=== PATIENT | female | born 1995 | race Caucasian/White ===

== ENCOUNTER 2024-08-22 19:10 | Inpatient (IN) | payer BC ==
[~2024-08-22] VITALS: Ht 154.9 cm; Wt 139.2 kg
[2024-08-22 21:37] LABS: BASOPHILS % (AUTO) 0.1 % (0.0-2.0); EOSINOPHILS % (AUTO) 0.3 % (1.0-6.0); HEMATOCRIT 29.2 % (36-46); HEMOGLOBIN 9.1 g/dL (12.0-16.0); LYMPHOCYTES # (AUTO) 1.9 K/uL (1.0-4.8); LYMPHOCYTES % (AUTO) 7.2 % (22.0-44.0); MEAN CORPUSCULAR HEMOGLOBIN 23.8 pg (26.0-34.0); MEAN CORPUSCULAR HGB CONC 31.3 G/dL (31.0-37.0); MEAN CORPUSCULAR VOLUME 76 fL (80-100); MONOCYTES # (AUTO) 2.1 K/uL (0.1-1.0); MONOCYTES % (AUTO) 8.3 % (2.0-9.0); NEUTROPHILS # (AUTO) 21.8 K/uL (1.8-7.7); NEUTROPHILS % (AUTO) 84.1 % (40.0-70.0); PLATELET COUNT (AUTO) 333 K/uL (150-450); RED BLOOD CELL COUNT(AUTO) 3.84 MIL/uL (4.00-5.20); RED CELL DISTRIBUTION WIDTH 15.2 % (11.5-14.5); WHITE BLOOD COUNT (AUTO) 25.9 K/uL (4.5-11.0)
[2024-08-22 21:38] LABS: RBC MORPHOLOGY COMMENT ABNORMAL RBC MORPH
[2024-08-22 21:46] LABS: CALCIUM, TOTAL 8.7 mg/dL (8.8-10.5); CREATININE 1.14 mg/dL (0.60-1.30)
[2024-08-22 21:52] LABS: POTASSIUM 2.9 mmol/L (3.5-5.1)
[2024-08-22 21:54] LABS: TROPONIN I-HIGH SENSITIVITY 4 ng/L (<51)
[2024-08-22] MEDS ORDERED: 0.9% SODIUM CHLORIDE 10 ML SYRINGE IVP PRN (22:30)
[2024-08-22] MEDS: SODIUM CHLORIDE 0.9% 1,000 ML IV ONE (23:04)
[2024-08-22] MEDS: CefTRIAXone 1 GM/DEXTROSE 50 ML IV ONE (23:05)
[2024-08-22] MEDS: POTASSIUM CHLORIDE 20 MEQ ER TABLET PO ONE (23:05)
[2024-08-22] MEDS ORDERED: MAGNESIUM SULFATE 4 GM/WATER 100 ML IV PRN (23:15)
[2024-08-22] MEDS ORDERED: BISACODYL 10 MG RECTAL RECTAL SUPPOSITORY PR PRN (23:15)
[2024-08-22] MEDS ORDERED: MORPHINE SULFATE 2 MG/ML SYRINGE IVP PRN (23:15)
[2024-08-22] MEDS ORDERED: POTASSIUM CHL 10 MEQ/WATER 50 ML IV PRN (23:15)
[2024-08-22] MEDS ORDERED: ACETAMINOPHEN 325 MG TABLET PO PRN (23:15)
[2024-08-22] MEDS ORDERED: ONDANSETRON HCL 4 MG/2 ML VIAL IVP PRN (23:15)
[2024-08-22] MEDS ORDERED: ZOLPIDEM TARTRATE 5 MG TABLET PO PRN (23:15)
[2024-08-22] MEDS ORDERED: MAGNESIUM SULFATE 2 GM/WATER 50 ML IV PRN (23:15)
[2024-08-22] MEDS ORDERED: MAGNESIUM OXIDE 400 MG TABLET PO PRN (23:15)
[2024-08-22 23:21] LABS: LACTIC ACID 0.9 mmol/L (0.4-2.0)
[2024-08-22] MEDS ORDERED: CefTRIAXone 1 GM/DEXTROSE 50 ML IV SCH (23:30)
[2024-08-22 23:37] LABS: ALBUMIN 1.9 g/dL (3.4-5.0)
[2024-08-22] MEDS: AZITHROMYCIN 500 MG/NS 250 ML IV ONE (23:45)
[2024-08-23] VITALS (9 sets, daily range): BP systolic 121–141; BP diastolic 64–92; PULSE 85–108; RESP 16–20; TEMP 98.4–99.2; O2SAT 92–99
[2024-08-23 01:20] LABS: APPEARANCE,URINE CLEAR (CLEAR); BILIRUBIN,URINE NEGATIVE (NEGATIVE); COLOR,URINE LIGHT YELLOW (YELLOW); GLUCOSE, URINE (UA) NEGATIVE (NEGATIVE); KETONES,URINE NEGATIVE (NEGATIVE); LEUKOCYTE ESTERASE ,URINE NEGATIVE (NEGATIVE); NITRATE,URINE NEGATIVE (NEGATIVE); OCCULT BLOOD,URINE NEGATIVE (NEGATIVE); PROTEIN,URINE NEGATIVE (NEGATIVE); UROBILINOGEN,URINE <=1.0 mg/dL (<=1.0)
[2024-08-23] MEDS: HEPARIN SODIUM,PORCINE 5,000 UNITS/ML VIAL SQ SCH (01:30)
[2024-08-23] MEDS: HYDROCODONE/ACETAMINOPHEN 5-325 MG TABLET PO PRN (01:54)
[2024-08-23] MEDS: PANTOPRAZOLE SODIUM 40 MG/VIAL IVP SCH (08:35)
[2024-08-23] MEDS: DOCUSATE SODIUM 100 MG CAPSULE PO SCH (08:38)
[2024-08-23] MEDS: ALBUTEROL SULFATE 2.5 MG/0.5 ML NEB SOLUTION NEB PRN (09:36)
[2024-08-23] MEDS: IPRATROPIUM BROMIDE 0.5 MG/2.5 ML NEB SOLUTION NEB PRN (09:36)
[2024-08-23 09:46] LABS: ANION GAP 9 mmol/L (8-16); CALCIUM, TOTAL 8.4 mg/dL (8.8-10.5); CARBON DIOXIDE 25 mmol/L (22-29); CHLORIDE 100 mmol/L (98-107); CREATININE 0.97 mg/dL (0.60-1.30); GLOMERULAR FILTR. RATE CALC > 60 mL/min (>60); GLUCOSE,RANDOM 106 mg/dL (70-110); POTASSIUM 3.4 mmol/L (3.5-5.1); SODIUM SERUM 134 mmol/L (136-145); UREA NITROGEN, BLOOD 13 mg/dL (7-18)
[2024-08-23] MEDS: POTASSIUM CHLORIDE 20 MEQ ER TABLET PO PRN (10:38)
[2024-08-23 11:26] LABS: BASOPHILS % (AUTO) 0.1 % (0.0-2.0); EOSINOPHILS % (AUTO) 0.4 % (1.0-6.0); HEMATOCRIT 28.7 % (36-46); HEMOGLOBIN 8.7 g/dL (12.0-16.0); LYMPHOCYTES # (AUTO) 2.8 K/uL (1.0-4.8); LYMPHOCYTES % (AUTO) 9.4 % (22.0-44.0); MEAN CORPUSCULAR HEMOGLOBIN 23.1 pg (26.0-34.0); MEAN CORPUSCULAR HGB CONC 30.3 G/dL (31.0-37.0); MEAN CORPUSCULAR VOLUME 76 fL (80-100); MONOCYTES # (AUTO) 1.9 K/uL (0.1-1.0); MONOCYTES % (AUTO) 6.5 % (2.0-9.0); NEUTROPHILS # (AUTO) 24.8 K/uL (1.8-7.7); NEUTROPHILS % (AUTO) 83.6 % (40.0-70.0); PLATELET COUNT (AUTO) 334 K/uL (150-450); RED BLOOD CELL COUNT(AUTO) 3.75 MIL/uL (4.00-5.20); RED CELL DISTRIBUTION WIDTH 15.2 % (11.5-14.5); WHITE BLOOD COUNT (AUTO) 29.7 K/uL (4.5-11.0)
[2024-08-23] MEDS: *CLINICAL-CEFEPIME DOSING CLINICAL ONE (18:03)
[2024-08-23] MEDS ORDERED: SODIUM CHLORIDE 0.9% 500 ML IV ONE (19:25)
[2024-08-23] MEDS: VANCOMYCIN HCL 1 GM/D5% WATER 200 ML IV ONE (19:28)
[2024-08-23] MEDS ORDERED: NORE1TAB27 PO (20:41)
[2024-08-23] MEDS: ETHINYL ESTRADIOL PO SCH (21:25)
[2024-08-23] MEDS: NORETHINDRONE PO SCH (21:25)
[2024-08-23] MEDS: CEFEPIME HCL 2 GM in DEXTROSE 5%-WATER 50 ML IV SCH (22:03)
[2024-08-23] MEDS: AZITHROMYCIN 500 MG/NS 250 ML IV SCH (22:46)
[2024-08-24] VITALS (7 sets, daily range): BP systolic 116–144; BP diastolic 73–94; PULSE 92–114; RESP 18–28; TEMP 98–99.3; O2SAT 85–98
[2024-08-24] MEDS: VANCOMYCIN HCL 1 GM/D5% WATER 200 ML IV ONE (00:05)
[2024-08-24 07:56] LABS: ANION GAP 8 mmol/L (8-16); CALCIUM, TOTAL 8.3 mg/dL (8.8-10.5); CARBON DIOXIDE 25 mmol/L (22-29); CHLORIDE 98 mmol/L (98-107); GLOMERULAR FILTR. RATE CALC > 60 mL/min (>60); GLUCOSE,RANDOM 102 mg/dL (70-110); POTASSIUM 4.1 mmol/L (3.5-5.1); SODIUM SERUM 131 mmol/L (136-145); UREA NITROGEN, BLOOD 11 mg/dL (7-18)
[2024-08-24] MEDS: VANCOMYCIN HCL 1.25 GM in DEXTROSE 5%-WATER 250 ML IV SCH (08:45)
[2024-08-24] MEDS: OxyCODONE HCL/ACETAMINOPHEN 10-325 MG TABLET PO PRN (14:32)
[2024-08-25] VITALS: BP 120/95; PULSE 90; RESP 20; TEMP 98.5; O2SAT 95
[2024-08-25 08:17] LABS: ANION GAP 7 mmol/L (8-16); CALCIUM, TOTAL 8.1 mg/dL (8.8-10.5); CARBON DIOXIDE 28 mmol/L (22-29); CHLORIDE 99 mmol/L (98-107); CREATININE 0.88 mg/dL (0.60-1.30); GLOMERULAR FILTR. RATE CALC > 60 mL/min (>60); GLUCOSE,RANDOM 105 mg/dL (70-110); SODIUM SERUM 134 mmol/L (136-145); UREA NITROGEN, BLOOD 7 mg/dL (7-18)
[2024-08-25 08:24] VITALS: BP 128/73; PULSE 94; RESP 20; TEMP 98; O2SAT 95
[2024-08-25] MEDS ORDERED: DOXYCYCLINE HYCLATE 100 MG/VIAL IPL ONE (08:45)
[2024-08-25] MEDS ORDERED: SODIUM CHLORIDE 0.9% 0 ML ONE ×2 (08:49→08:51)
[2024-08-25] MEDS: ETHYL ALCOHOL 62% ANTISEPTIC NASAL SANITIZER 0.6 ML AMPUL NASAL ONE (08:51)
[2024-08-25] MEDS: CHLORHEXIDINE GLUCONATE 2% TOWELETTE [2'S/6'S] TP ONE (08:51)
[2024-08-25] MEDS ORDERED: SODIUM CHLORIDE 0.9% 500 ML IV ONE (08:54)
[2024-08-25] MEDS ORDERED: 0.9% SODIUM CHLORIDE 5 ML NEB SOLUTION NEB ONE (09:11)
[2024-08-25 09:13] VITALS: PULSE 111; RESP 20; O2SAT 97; O2SAT 99
[2024-08-25 09:28] VITALS: PULSE 120; RESP 20; O2SAT 96
[2024-08-25] MEDS ORDERED: HYDROmorphone HCL 2 MG/ML SYRINGE IVP PRN (11:00)
[2024-08-25] MEDS ORDERED: FentaNYL CITRATE PF 100 MCG/2 ML VIAL IVP PRN (11:00)
[2024-08-25] MEDS ORDERED: MEPERIDINE-PF 25 MG/ML VIAL IVP PRN (11:00)
[2024-08-25 11:29] LABS: BASOPHILS % (AUTO) 0.3 % (0.0-2.0); EOSINOPHILS % (AUTO) 0.5 % (1.0-6.0); HEMATOCRIT 26.5 % (36-46); LYMPHOCYTES # (AUTO) 2.9 K/uL (1.0-4.8); LYMPHOCYTES % (AUTO) 11.3 % (22.0-44.0); MEAN CORPUSCULAR HEMOGLOBIN 23.2 pg (26.0-34.0); MEAN CORPUSCULAR HGB CONC 30.4 G/dL (31.0-37.0); MEAN CORPUSCULAR VOLUME 77 fL (80-100); MONOCYTES # (AUTO) 1.6 K/uL (0.1-1.0); MONOCYTES % (AUTO) 6.4 % (2.0-9.0); NEUTROPHILS # (AUTO) 20.6 K/uL (1.8-7.7); NEUTROPHILS % (AUTO) 81.5 % (40.0-70.0); PLATELET COUNT (AUTO) 405 K/uL (150-450); RED BLOOD CELL COUNT(AUTO) 3.46 MIL/uL (4.00-5.20); RED CELL DISTRIBUTION WIDTH 15.5 % (11.5-14.5); WHITE BLOOD COUNT (AUTO) 25.3 K/uL (4.5-11.0)
[2024-08-25 11:32] LABS: RBC MORPHOLOGY COMMENT ABNORMAL RBC MORPH
[2024-08-25] MEDS ORDERED: ACETAMINOPHEN/ISO-OSM 1000 MG/100 ML BOTTLE IV ONE (12:00)
[2024-08-25] MEDS ORDERED: KETOROLAC TROMETHAMINE 60 MG/2 ML VIAL IM ONE (12:00)
[2024-08-25] MEDS ORDERED: LIDOCAINE/PF 2% 5 ML VIAL IM ONE (12:00)
[2024-08-25] MEDS ORDERED: DEXAMETHASONE SOD PHOS 4 MG/ML VIAL IVP ONE (12:00)
[2024-08-25] MEDS ORDERED: ACETAMINOPHEN 1000 MG/ISO-OSM 100 ML IV ONE (12:15)
[2024-08-25 12:24] LABS: ABG METHEMOGLOBIN 0.3 % (0.0-1.5); SOURCE, BLOOD GAS ARTERIAL
[2024-08-25 12:27] LABS: ABG BASE EXCESS -1.4 mmol/L (-2.0-3.0); ABG CARBOXYHEMOGLOBIN 1.2 % (0.5-1.5); ABG HCO3 23.6 mmol/L (21.0-28.0); ABG OXYGEN CONTENT 11.9 mL/dL (15.0-23.0); ABG OXYGEN SATURATION 97.7 % (94.0-98.0); ABG OXYHEMOGLOBIN 96.2 % (94.0-98.0); ABG PCO2 34 mmHg (32.0-45.0); ABG PH 7.446 (7.350-7.450); ABG TOTAL HEMOGLOBIN 8.7 G/dL (12.0-16.0); PO2, ARTERIAL BG 83.8 mmHg (83.0-108.0)
[2024-08-25 12:31] LABS: O2 DEVICE,BLOOD GAS CANNULA (ROOM AIR); SITE, BLOOD GAS ARTERIAL LINE
[2024-08-25 12:32] LABS: ABG A-A DIFF O2 134.2 mmHg (10-20.0)
[2024-08-25] MEDS ORDERED: SODIUM CHLORIDE 0.9% 1,000 ML ONE (13:42)
[2024-08-25] MEDS ORDERED: RINGERS SOLUTION,LACTATED 0 ML IV ONE (13:42)
[2024-08-25 15:07] LABS: S PNEUMO SOURCE Urine; STREP PNEUMONIAE AG URINE Negative (Negative)
[2024-08-25 16:51] VITALS: BP 130/69; PULSE 94; RESP 27; TEMP 100.2; O2SAT 96
[2024-08-25] MEDS: BUPIVACAINE HCL/PF 0.25% 30 ML VIAL ONE (17:14)
[2024-08-25] MEDS: SODIUM CHLORIDE 0.9% 1,500 ML IV ONE (18:38)
[2024-08-25 20:00] VITALS: BP 139/73; PULSE 83; RESP 21; TEMP 98.5; O2SAT 98
[2024-08-25] MEDS ORDERED: SODIUM CHLORIDE 0.9% 250 ML IV ONE (20:24)
[2024-08-25] MEDS: OXYGEN THERAPY IH SCH (20:29)
[2024-08-25] MEDS: VANCOMYCIN HCL 1.5 GM in DEXTROSE 5%-WATER 250 ML IV SCH (20:29)
[2024-08-25 20:51] LABS: BASOPHILS % (AUTO) 0.1 % (0.0-2.0); EOSINOPHILS % (AUTO) 0.1 % (1.0-6.0); HEMATOCRIT 26.3 % (36-46); HEMOGLOBIN 8.2 g/dL (12.0-16.0); LYMPHOCYTES # (AUTO) 1.5 K/uL (1.0-4.8); LYMPHOCYTES % (AUTO) 5.8 % (22.0-44.0); MEAN CORPUSCULAR HEMOGLOBIN 23.8 pg (26.0-34.0); MEAN CORPUSCULAR HGB CONC 31.3 G/dL (31.0-37.0); MEAN CORPUSCULAR VOLUME 76 fL (80-100); MONOCYTES # (AUTO) 0.6 K/uL (0.1-1.0); MONOCYTES % (AUTO) 2.3 % (2.0-9.0); NEUTROPHILS # (AUTO) 23.2 K/uL (1.8-7.7); PLATELET COUNT (AUTO) 400 K/uL (150-450); RED BLOOD CELL COUNT(AUTO) 3.46 MIL/uL (4.00-5.20); WHITE BLOOD COUNT (AUTO) 25.3 K/uL (4.5-11.0)
[2024-08-25 20:53] LABS: NEUTROPHILS % (AUTO) 91.7 % (40.0-70.0)
[2024-08-25 21:21] LABS: RBC MORPHOLOGY COMMENT ABNORMAL RBC MORPH
[2024-08-25] MEDS: HYDROmorphone HCL 2 MG/ML SYRINGE IVP PRN (21:49)
[2024-08-26] VITALS: BP 163/79; PULSE 85; RESP 18; TEMP 99.1; O2SAT 97
[2024-08-26] MEDS: SODIUM CHLORIDE 0.9% 1,000 ML IV SCH (01:12)
[2024-08-26 04:00] VITALS: BP 139/66; PULSE 82; RESP 15; TEMP 98.9; O2SAT 96
[2024-08-26 06:52] LABS: HEMATOCRIT 25.6 % (36-46); HEMOGLOBIN 7.8 g/dL (12.0-16.0); MEAN CORPUSCULAR HEMOGLOBIN 23.2 pg (26.0-34.0); MEAN CORPUSCULAR HGB CONC 30.4 G/dL (31.0-37.0); MEAN CORPUSCULAR VOLUME 77 fL (80-100); PLATELET COUNT (AUTO) 423 K/uL (150-450); RED BLOOD CELL COUNT(AUTO) 3.34 MIL/uL (4.00-5.20); RED CELL DISTRIBUTION WIDTH 15.5 % (11.5-14.5)
[2024-08-26 06:59] LABS: ANION GAP 8 mmol/L (8-16); CALCIUM, TOTAL 7.8 mg/dL (8.8-10.5); CARBON DIOXIDE 28 mmol/L (22-29); CHLORIDE 105 mmol/L (98-107); CREATININE 0.75 mg/dL (0.60-1.30); GLOMERULAR FILTR. RATE CALC > 60 mL/min (>60); GLUCOSE,RANDOM 111 mg/dL (70-110); POTASSIUM 4.7 mmol/L (3.5-5.1); SODIUM SERUM 141 mmol/L (136-145); UREA NITROGEN, BLOOD 7 mg/dL (7-18)
[2024-08-26 08:00] VITALS: BP 124/68; PULSE 84; RESP 19; TEMP 98.9; O2SAT 94
[2024-08-26 08:19] LABS: RBC MORPHOLOGY COMMENT ABNORMAL RBC MORPH
[2024-08-26 10:24] LABS: BAND NEUTROPHILS % (MANUAL) 7 % (0-5); LYMPHOCYTES % (MANUAL) 9 % (22-44); MONOCYTES % (MANUAL) 8 % (2-9); SEGMENTED NEUTROPHILS % 76 % (40-70); TOTAL CELLS COUNTED 100
[2024-08-26 12:00] VITALS: BP 139/75; PULSE 97; RESP 22; TEMP 98.6; O2SAT 95
[2024-08-26 15:46] LABS: PROTHROMBIN TIME 11.8 SEC (9.4-11.6)
[2024-08-26 16:00] VITALS: BP 134/78; PULSE 99; RESP 27; TEMP 98.5; O2SAT 95
[2024-08-26 20:15] VITALS: BP 129/69; PULSE 84; RESP 20; TEMP 98; O2SAT 100
[2024-08-26] MEDS ORDERED: SODIUM CHLORIDE 0.9% 0 ML IV ONE (20:35)
[2024-08-27 05:32] VITALS: BP 122/74; PULSE 93; RESP 19; TEMP 98.2; O2SAT 98
[2024-08-27] MEDS ORDERED: FentaNYL CITRATE PF 100 MCG/2 ML VIAL IVP ONE (06:40)
[2024-08-27] MEDS ORDERED: MORPHINE SULFATE/PF 0.5 MG/ML 10 ML AMP IVP ONE (06:40)
[2024-08-27] MEDS ORDERED: MIDAZOLAM HCL 2 MG/2 ML VIAL IVP ONE (06:40)
[2024-08-27 07:40] LABS: ANION GAP 4 mmol/L (8-16); CALCIUM, TOTAL 7.6 mg/dL (8.8-10.5); CARBON DIOXIDE 29 mmol/L (22-29); CHLORIDE 103 mmol/L (98-107); CREATININE 0.74 mg/dL (0.60-1.30); GLOMERULAR FILTR. RATE CALC > 60 mL/min (>60); GLUCOSE,RANDOM 108 mg/dL (70-110); POTASSIUM 3.7 mmol/L (3.5-5.1); SODIUM SERUM 136 mmol/L (136-145); UREA NITROGEN, BLOOD 6 mg/dL (7-18); VANCOMYCIN,RANDOM 11.5 mcg/mL (25.0-50.0)
[2024-08-27 08:14] VITALS: BP 127/68; PULSE 97; RESP 20; TEMP 98.8; O2SAT 100
[2024-08-27 16:56] VITALS: BP 134/73; PULSE 94; RESP 20; TEMP 98.2; O2SAT 99
[2024-08-27 19:29] VITALS: BP 137/71; PULSE 87; RESP 20; TEMP 98.3; O2SAT 98
[2024-08-27] MEDS: VANCOMYCIN HCL 1.75 GM in DEXTROSE 5%-WATER 250 ML IV SCH (20:42)
[2024-08-28 05:38] VITALS: BP 124/68; PULSE 84; RESP 20; TEMP 98.3; O2SAT 100
[2024-08-28 07:14] LABS: ANION GAP 7 mmol/L (8-16); CARBON DIOXIDE 29 mmol/L (22-29); CHLORIDE 102 mmol/L (98-107); CREATININE 0.67 mg/dL (0.60-1.30); GLOMERULAR FILTR. RATE CALC > 60 mL/min (>60); GLUCOSE,RANDOM 97 mg/dL (70-110); POTASSIUM 3.7 mmol/L (3.5-5.1); SODIUM SERUM 138 mmol/L (136-145); UREA NITROGEN, BLOOD 3 mg/dL (7-18)
[2024-08-28 08:00] VITALS: BP 133/80; PULSE 80; RESP 20; TEMP 98.5; O2SAT 99
[2024-08-28 15:27] VITALS: BP 133/71; PULSE 96; RESP 20; TEMP 98; O2SAT 94
[2024-08-28] MEDS: MAGNESIUM HYDROXIDE SUSPENSION 30 ML UDCUP PO PRN (15:42)
[2024-08-28 19:14] VITALS: BP 133/73; PULSE 83; RESP 20; TEMP 98.4; O2SAT 95
[2024-08-28] MEDS: LACTULOSE 20 GM/30 ML SOLUTION UDCUP PO ONE (22:02)
[2024-08-28 22:04] LABS: BASOPHILS % (AUTO) 0.4 % (0.0-2.0); EOSINOPHILS % (AUTO) 0.7 % (1.0-6.0); HEMATOCRIT 25.8 % (36-46); HEMOGLOBIN 7.8 g/dL (12.0-16.0); LYMPHOCYTES # (AUTO) 3.7 K/uL (1.0-4.8); LYMPHOCYTES % (AUTO) 17.5 % (22.0-44.0); MEAN CORPUSCULAR HEMOGLOBIN 23.1 pg (26.0-34.0); MEAN CORPUSCULAR HGB CONC 30.3 G/dL (31.0-37.0); MEAN CORPUSCULAR VOLUME 76 fL (80-100); MONOCYTES # (AUTO) 1.1 K/uL (0.1-1.0); MONOCYTES % (AUTO) 5.2 % (2.0-9.0); NEUTROPHILS # (AUTO) 16.2 K/uL (1.8-7.7); NEUTROPHILS % (AUTO) 76.2 % (40.0-70.0); PLATELET COUNT (AUTO) 743 K/uL (150-450); RED BLOOD CELL COUNT(AUTO) 3.39 MIL/uL (4.00-5.20); RED CELL DISTRIBUTION WIDTH 15.5 % (11.5-14.5); WHITE BLOOD COUNT (AUTO) 21.2 K/uL (4.5-11.0)
[2024-08-28 22:17] LABS: RBC MORPHOLOGY COMMENT ABNORMAL RBC MORPH
[2024-08-29] VITALS (12 sets, daily range): BP systolic 117–146; BP diastolic 60–76; PULSE 82–109; RESP 18–20; TEMP 97.8–99.2; O2SAT 95–98
[2024-08-29 08:43] LABS: BASOPHILS % (AUTO) 0.4 % (0.0-2.0); EOSINOPHILS % (AUTO) 0.7 % (1.0-6.0); HEMATOCRIT 21.6 % (36-46); LYMPHOCYTES # (AUTO) 2.5 K/uL (1.0-4.8); LYMPHOCYTES % (AUTO) 13.4 % (22.0-44.0); MEAN CORPUSCULAR HEMOGLOBIN 24.3 pg (26.0-34.0); MEAN CORPUSCULAR VOLUME 76 fL (80-100); MONOCYTES # (AUTO) 0.9 K/uL (0.1-1.0); NEUTROPHILS % (AUTO) 80.5 % (40.0-70.0); PLATELET COUNT (AUTO) 603 K/uL (150-450); RED BLOOD CELL COUNT(AUTO) 2.84 MIL/uL (4.00-5.20); RED CELL DISTRIBUTION WIDTH 15.5 % (11.5-14.5); WHITE BLOOD COUNT (AUTO) 18.7 K/uL (4.5-11.0)
[2024-08-29 08:51] LABS: HEMOGLOBIN 6.9 g/dL (12.0-16.0)
[2024-08-29 08:52] LABS: RBC MORPHOLOGY COMMENT ABNORMAL RBC MORPH
[2024-08-29 08:56] LABS: ALANINE AMINOTRANSFERASE 137 U/L (12-78); ALBUMIN 1.4 g/dL (3.4-5.0); ALKALINE PHOSPHATASE 127 U/L (46-116); ANION GAP 1 mmol/L (8-16); ASPARTATE AMINOTRANSFERASE 96 U/L (15-37); BILIRUBIN,TOTAL 0.3 mg/dL (0.1-1.0); CARBON DIOXIDE 33 mmol/L (22-29); CHLORIDE 102 mmol/L (98-107); CREATININE 0.68 mg/dL (0.60-1.30); GLOMERULAR FILTR. RATE CALC > 60 mL/min (>60); GLUCOSE,RANDOM 105 mg/dL (70-110); SODIUM SERUM 136 mmol/L (136-145); TOTAL PROTEIN, SERUM 6.2 g/dL (6.4-8.2); UREA NITROGEN, BLOOD 3 mg/dL (7-18); VANCOMYCIN,RANDOM 18.8 mcg/mL (25.0-50.0)
[2024-08-29 09:02] LABS: % IRON SATURATION 8.6 % (22-44); IRON, SERUM 17 mcg/dL (50-175); TOTAL IRON BINDING CAPACITY 196 mcg/dL (250-450)
[2024-08-29] MEDS ORDERED: SODIUM CHLORIDE 0.9% 250 ML IV ONE (15:24)
[2024-08-29] MEDS ORDERED: SODIUM CHLORIDE 0.9% 500 ML IV ONE (16:09)
[2024-08-29] MEDS: SOD FERRIC GLUC COMPLX/SUCROSE 125 MG in SODIUM CHLORIDE 0.9% 100 ML IV SCH (20:15)
[2024-08-30] VITALS (7 sets, daily range): BP systolic 124–157; BP diastolic 71–79; PULSE 91–100; RESP 18; TEMP 98–99; O2SAT 93–98
[2024-08-30 07:24] LABS: BASOPHILS % (AUTO) 0.4 % (0.0-2.0); HEMATOCRIT 23.6 % (36-46); HEMOGLOBIN 7.7 g/dL (12.0-16.0); LYMPHOCYTES # (AUTO) 2.1 K/uL (1.0-4.8); LYMPHOCYTES % (AUTO) 13.5 % (22.0-44.0); MEAN CORPUSCULAR HEMOGLOBIN 25.4 pg (26.0-34.0); MEAN CORPUSCULAR HGB CONC 32.7 G/dL (31.0-37.0); MEAN CORPUSCULAR VOLUME 78 fL (80-100); MONOCYTES # (AUTO) 0.9 K/uL (0.1-1.0); MONOCYTES % (AUTO) 5.7 % (2.0-9.0); NEUTROPHILS # (AUTO) 12.5 K/uL (1.8-7.7); NEUTROPHILS % (AUTO) 79.4 % (40.0-70.0); PLATELET COUNT (AUTO) 640 K/uL (150-450); RED BLOOD CELL COUNT(AUTO) 3.03 MIL/uL (4.00-5.20); RED CELL DISTRIBUTION WIDTH 15.9 % (11.5-14.5); WHITE BLOOD COUNT (AUTO) 15.8 K/uL (4.5-11.0)
[2024-08-30 07:34] LABS: ANION GAP 4 mmol/L (8-16); CALCIUM, TOTAL 7.8 mg/dL (8.8-10.5); CARBON DIOXIDE 32 mmol/L (22-29); CHLORIDE 102 mmol/L (98-107); CREATININE 0.67 mg/dL (0.60-1.30); GLOMERULAR FILTR. RATE CALC > 60 mL/min (>60); GLUCOSE,RANDOM 101 mg/dL (70-110); SODIUM SERUM 138 mmol/L (136-145); UREA NITROGEN, BLOOD 3 mg/dL (7-18)
[2024-08-31 06:02] VITALS: BP 137/76; PULSE 88; RESP 18; TEMP 98.4; O2SAT 96
[2024-08-31 07:59] VITALS: BP 138/73; PULSE 88; RESP 17; TEMP 98; O2SAT 96
[2024-08-31 14:05] LABS: ANION GAP 3 mmol/L (8-16); CALCIUM, TOTAL 8.1 mg/dL (8.8-10.5); CARBON DIOXIDE 32 mmol/L (22-29); CHLORIDE 103 mmol/L (98-107); CREATININE 0.68 mg/dL (0.60-1.30); GLOMERULAR FILTR. RATE CALC > 60 mL/min (>60); GLUCOSE,RANDOM 101 mg/dL (70-110); POTASSIUM 3.8 mmol/L (3.5-5.1); SODIUM SERUM 138 mmol/L (136-145); UREA NITROGEN, BLOOD 3 mg/dL (7-18)
[2024-08-31] MEDS ORDERED: DOCU-385 PO (15:57)
[2024-08-31] MEDS ORDERED: FERR325T27 PO ×2 (15:57→16:17)
[2024-08-31 16:01] VITALS: BP 132/78; PULSE 82; RESP 18; TEMP 98.2; O2SAT 95
[2024-08-31] MEDS ORDERED: ALBU18HF12 IH (16:17)
[2024-08-31] MEDS ORDERED: LEVO750T68 PO (16:17)
[2024-08-31] MEDS ORDERED: HYDR-4062 PO (16:17)
[2024-08-31] MEDS ORDERED: DOCU-412 PO (16:17)
== END 2024-08-31 18:00 | disposition home or self-care (01) | DRG 163 ==
LOC: EMS 19:16 → EDH 23:13 → UNDOADMIN 08-23 00:15 → 6S 08-23 01:17 → EDH 08-23 01:17 → ICU 08-25 16:51 → 4E 08-26 18:45
PROVIDERS: ADMIT Hospitalist; ATTEND Hospitalist
PROC: 0W994ZZ Drainage of Right Pleural Cavity, Percutaneous Endoscopic Approach (ICD-10-PCS; 2024-08-25)
PROC: 0BNK4ZZ Release Right Lung, Percutaneous Endoscopic Approach (ICD-10-PCS; principal; 2024-08-25 13:30)
PROC: 30233P1 Transfusion of Nonautologous Frozen Red Cells into Peripheral Vein, Percutaneous Approach (ICD-10-PCS; 2024-08-29)
DX: J90 Pleural effusion, not elsewhere classified (principal); J18.9 Pneumonia, unspecified organism; J86.9 Pyothorax without fistula; J96.00 Acute respiratory failure, unspecified whether with hypoxia or hypercapnia; E87.1 Hypo-osmolality and hyponatremia; N17.9 Acute kidney failure, unspecified; Z68.43 Body mass index [BMI] 50.0-59.9, adult; E87.6 Hypokalemia; E66.01 Morbid (severe) obesity due to excess calories; F17.210 Nicotine dependence, cigarettes, uncomplicated; D50.9 Iron deficiency anemia, unspecified; K59.00 Constipation, unspecified; Z88.0 Allergy status to penicillin; Z88.8 Allergy status to other drugs, medicaments and biological substances
CPT/HCPCS: 36245; 36569; 71045; 71250; 76937; 80048; 80053; 80202; 81003; 82040; 82805; 83540; 83550; 83605; 83735; 84132; 84145; 84484; 84703; 85025; 85610; 85730; 86850; 86900; 86901; 86923; 87015; 87040; 87070; 87075; 87081; 87101; 87205; 87206; 87252; 87899; 88108; 88305; 93005; 94640; 94667; 97116; 97162; 97530; 99285; G0238; G0378; J0131; J0456; J0692; J0696; J1100; J1171; J1644; J1885; J2250; J2274; J2470; J2916; J3010; J3370; J3490; J7030; J7040; J7050; J7060; J7120; P9016; 36415-L1; 36415-TC; J7613; Z7610